=== PATIENT | female | born 1965 ===

== ENCOUNTER 2020-08-23 07:59 | Emergency (ER) | payer BC ==
[~2020-08-23] VITALS: Ht 167.6 cm; Wt 58.2 kg
--- NOTE | 2020-08-23 08:03 | NUR ---
PT CALLED X1 TO TRIAGE, NO ANSWER.
[2020-08-23] MEDS ORDERED: SULF-23 PO (08:20)
[2020-08-23] MEDS ORDERED: HYDR-826 PO (08:20)
[2020-08-23 09:16] LABS: BASOPHILS % (AUTO) 0 % (0-1); EOSINOPHILS % (AUTO) 3 % (1-7); LYMPHOCYTES % (AUTO) 26 % (22-44); MEAN CORPUSCULAR HEMOGLOBIN 33.9 pg (27.0-34.8); MEAN CORPUSCULAR HGB CONC 35.2 g/dL (32.4-35.8); MEAN PLATELET VOLUME 7.5 fL (7.4-10.4); MONOCYTES % (AUTO) 8 % (2-9); NEUTROPHILS % (AUTO) 62 % (42-75); PLATELET COUNT 236 x10^3/uL (130-400); RED BLOOD COUNT 4.04 x10^6/uL (3.82-5.3); RED CELL DISTRIBUTION WIDTH 13.1 % (9.6-15.2)
[2020-08-23 09:22] LABS: ALANINE AMINOTRANSFERASE 21 U/L (12-78); ALBUMIN 3.7 g/dL (3.4-5.0); ANION GAP 11 mmol/L (5-15); CHLORIDE 105 mmol/L (98-107); CREATININE 0.47 mg/dL (0.55-1.02)
[2020-08-23 09:24] LABS: ALKALINE PHOSPHATASE 89 U/L (45-117); BILIRUBIN,TOTAL 0.3 mg/dL (0.2-1.0); TOTAL PROTEIN 7.5 g/dL (6.4-8.2)
--- NOTE | 2020-08-23 09:30 | NUR ---
PT UPRIGHT ON GURNEY AWAKE & COMFORTABLE, RESPONDS APPROP TO STAFF, NAD, NO NEEDS AT THIS TIME, CALL LIGHT WITHIN REACH.
--- NOTE | 2020-08-23 10:00 | NUR ---
REPORT GIVEN TO JOSE JUAN
[2020-08-23 11:19] VITALS: BP 110/81
== END 2020-08-23 11:22 | disposition home or self-care (01) ==
LOC: ED 08:31
DX: L03.115 Cellulitis of right lower limb (principal); R21 Rash and other nonspecific skin eruption
CPT/HCPCS: 36415; 80053; 85025; 99283

== ENCOUNTER 2020-08-29 07:32 | Emergency (ER) | payer BC ==
[~2020-08-29] VITALS: Ht 167.6 cm; Wt 58.0 kg
[~2020-08-29 07:32] MED LIST: HYDR-826 PO; SULF-23 PO
--- NOTE | 2020-08-29 08:45 | NUR ---
program production specialist: pt from lobby to room 26
--- NOTE | 2020-08-29 09:07 | NUR ---
Pt states had itching that started about a month ago bilateral legs. States the last 9-10 days has got worse with large scabs and itching and burning bilaterally legss, but not tender to touch.
--- NOTE | 2020-08-29 09:08 | NUR ---
Provider at bedside to to evaluation on pt. Awaiting new orders
[2020-08-29] MEDS ORDERED: FAMOTIDINE 20 MG TABLET PO ONE (09:30)
[2020-08-29] MEDS ORDERED: DIPHENHYDRAMINE 25 MG CAPSULE PO ONE (09:30)
[2020-08-29] MEDS ORDERED: DIPHENHYDRAMINE 25 MG CAPSULE ONE (09:31)
[2020-08-29] MEDS ORDERED: FAMOTIDINE 20 MG TABLET ONE (09:31)
[2020-08-29 09:57] LABS: BASOPHILS % (AUTO) 0 % (0-1); EOSINOPHILS % (AUTO) 7 % (1-7); LYMPHOCYTES % (AUTO) 27 % (22-44); MEAN CORPUSCULAR HEMOGLOBIN 33.5 pg (27.0-34.8); MEAN CORPUSCULAR HGB CONC 34.7 g/dL (32.4-35.8); MEAN PLATELET VOLUME 7.5 fL (7.4-10.4); MONOCYTES % (AUTO) 8 % (2-9); NEUTROPHILS % (AUTO) 57 % (42-75); PLATELET COUNT 245 x10^3/uL (130-400); RED BLOOD COUNT 4.11 x10^6/uL (3.82-5.3); RED CELL DISTRIBUTION WIDTH 13.3 % (9.6-15.2)
[2020-08-29 10:03] LABS: ALANINE AMINOTRANSFERASE 30 U/L (12-78); ALBUMIN 3.7 g/dL (3.4-5.0); ANION GAP 8 mmol/L (5-15); CALCIUM 9.5 mg/dL (8.5-10.1); CHLORIDE 103 mmol/L (98-107); CREATININE 0.55 mg/dL (0.55-1.02)
[2020-08-29 10:05] LABS: ALKALINE PHOSPHATASE 95 U/L (45-117); BILIRUBIN,TOTAL 0.3 mg/dL (0.2-1.0); TOTAL PROTEIN 7.5 g/dL (6.4-8.2)
[2020-08-29 12:40] VITALS: BP 126/82
--- NOTE | 2020-08-29 13:07 | NUR ---
Patient given discharge instructions and they have confirmed that they understand the instructions. Patient ambulatory with steady gait. No questions at time of discharge.
== END 2020-08-29 13:09 | disposition home or self-care (01) ==
LOC: ED 09:19
DX: L25.9 Unspecified contact dermatitis, unspecified cause (principal)
CPT/HCPCS: 36415; 80053; 85025; 99283; Q0163